=== PATIENT | female | born 1955 | race Caucasian/White ===

== ENCOUNTER → 2016-04-05 | Outpatient (CLI) | payer OTHER ==
[~2016-04-05] MED LIST: AMLO10TA2 PO; ATOR40TA16 PO; Aspirin Ec PO; CITA20TA4 PO; CLOP75TA PO; LISI40TA PO; VENTAER INH
--- NOTE | 2016-04-05 22:19 | MG ---
cc: NAYELI KENDRICK MD Lab No: [id number] Date: 04/05/16 Age: 60 Sex: F Race: DATE OF : 1955 INDICATION A 60-year-old with altered mental status. DESCRIPTION OF RECORD Apparently a sleep-deprived EEG. 8-10 Hz, 20-50 microvolts. Posterior rhythms and increased beta frequencies. Reasonable driving with photic stimulation. A significant amount of eye movement and some myogenic artifact. Attenuation generalized slowing with transition into drowsy state followed by stage I sleep and stage II sleep with the appearance of spindles, K-complexes. Followed by wakeful state showing good EEG background reactivity. Burst synchronized delta activity epoch 120. No cardiac arrhythmia noted. INTERPRETATION Normal awake sleep EEG. Clinical correlation. Nayeli Kendrick MD MG/BJF /8:31 PM /10:09 PM
== END ==
LOC: HEEG 06:42
PROVIDERS: ATTEND Psychiatry & Neurology Vascular Neurology
DX: R41.82 Altered mental status, unspecified (principal); Z86.73 Personal history of transient ischemic attack (TIA), and cerebral infarction without residual deficits
CPT/HCPCS: 95819